=== PATIENT | female | born 1980 | race Caucasian/White ===

== ENCOUNTER 2017-06-13 16:48 | Emergency (ER) | payer MEDICAID ==
[~2017-06-13] VITALS: Ht 170.2 cm; Wt 75.4 kg
[2017-06-13 18:57] LABS: ADD MIUA? YES; BILIRUBIN NEGATIVE; BLOOD SMALL; COLOR YELLOW ((YELLOW)); GLUCOSE (STRIP) NEGATIVE; KETONES NEGATIVE; LEUKOCYTES NEGATIVE; NITRITE NEGATIVE; PROTEIN (STRIP) NEGATIVE; SPECIFIC GRAVITY 1.008 (1.000-1.030); UROBILINOGEN 0.2 MG/DL (0.2-1.0)
[2017-06-13 18:58] LABS: INTERNAL CONTROL VALID? YES
[2017-06-13 18:59] LABS: BACTERIA NONE SEEN /HPF; EPITHELIAL CELLS RARE /HPF; MUCUS TRACE /LPF; RED BLOOD CELLS 0-5 /HPF (0-5); UCUL ADDED? NO; WHITE BLOOD CELLS 0-5 /HPF (0-5)
[2017-06-13] MEDS ORDERED: FLEXERIL10 MG PO (19:45)
[2017-06-13] MEDS ORDERED: MOTRIN800 MG PO (19:45)
[2017-06-13 20:37] VITALS: BP 113/74
== END 2017-06-13 20:39 | disposition home or self-care (01) ==
LOC: EME 16:48
PROVIDERS: Emergency Medicine
DX: S09.90XA Unspecified injury of head, initial encounter (principal); S16.1XXA Strain of muscle, fascia and tendon at neck level, initial encounter; S60.221A Contusion of right hand, initial encounter; V86.95XA Unspecified occupant of 3- or 4- wheeled all-terrain vehicle (ATV) injured in nontraffic accident, initial encounter
CPT/HCPCS: 70450; 72125; 73130; 81003; 84703; 99281; 99284